=== PATIENT | female | born 1945 | race Caucasian/White ===

== ENCOUNTER → 2017-11-16 | Outpatient (CLI) | payer MEDICARE ==
--- NOTE | 2017-11-17 14:44 | Diagnostic Imaging Report ---
Examination: MRI SPINE LUMBAR WITHOUT CONTRAST History: Nonradiating low back pain for past 3 weeks. Comparison studies: None Technique: Sagittal, coronal and axial T2 , sagittal T1 and STIR; axial spin density oblique. Findings: Number of lumbar vertebral bodies: Five. Alignment: Normal lordosis. No scoliosis. Soft tissues: No T2 hyperintense inflammatory changes. Posterior paraspinal soft tissues and muscles: Mild symmetric fatty atrophy from L1 through S1. Lower thoracic cord: Normal in signal and morphology. The tip of the conus is at L1. Cauda equina: No masses. No arachnoiditis. Vertebrae: No fractures, infection or neoplasm. Degenerative changes: L1-L2: Mild bilateral facet arthropathy. No degenerative disc or foraminal or canal stenosis. L2-L3: Diffuse disc bulge and mild bilateral facet arthropathy result in mild bilateral neural foraminal narrowing. No canal stenosis. L3-L4: Mild bulge and mild bilateral facet arthropathy result in mild bilateral neural foraminal narrowing. No canal stenosis. L4-L5: Grade I anterolisthesis with a right pars defect. Uncovering of a diffuse disc bulge and mild bilateral facet arthropathy. No foraminal or canal stenosis. L5-S1: Diffuse disc bulge and moderate bilateral facet arthropathy result in moderate bilateral neural foraminal narrowing. No canal stenosis. IMPRESSION: Degenerative changes from L1-L2 through L5-S1 with moderate bilateral neural foraminal narrowing at L5-S1. Unilateral/ right isthmic spondylolisthesis at L4-L5. No canal stenosis. Signed by: Dr. Teodora Loomis M.D. on 11/17/2017 2:40 PM
== END ==
LOC: MRI 13:34
PROVIDERS: ATTEND Family Medicine
DX: M54.16 Radiculopathy, lumbar region (principal)
CPT/HCPCS: 72148

== ENCOUNTER → 2019-04-16 | Outpatient (CLI) | payer MEDICARE ==
--- NOTE | 2019-04-16 18:46 | Diagnostic Imaging Report ---
EXAMINATION: CT of the abdomen and pelvis without contrast. TECHNIQUE: Spiral CT images of the abdomen and pelvis were performed from the lung bases to the lesser trochanters. No intravenous contrast was given per renal stone protocol. Coronal and sagittal reformatted images were obtained. COMPARISON: None. CLINICAL HISTORY:Left flank pain for 3 days. DISCUSSION: ABSENCE OF INTRAVENOUS CONTRAST DECREASES SENSITIVITY FOR DETECTION OF FOCAL LESIONS AND VASCULAR PATHOLOGY. ABDOMEN/PELVIS: LOWER THORAX: Linear subsegmental atelectasis versus scarring in the right middle lobe. Atherosclerotic calcification of the ordinary arteries and thoracic aorta. HEPATOBILIARY: Nodular hepatic contour. No focal hepatic lesions. No intra or extrahepatic biliary ductal dilation. GALLBLADDER: No radio-opaque stones or sludge. No wall thickening. SPLEEN: Mild splenomegaly, measuring 13.6 cm in AP diameter PANCREAS: No focal masses or ductal dilatation. ADRENALS: 1.0 cm hypodense nodule in the left adrenal gland (series 3, image 39), which measures less than 10 Hounsfield units. Right adrenal gland unremarkable. KIDNEYS/URETERS: Right: No renal or ureteral calculi, hydronephrosis or obstruction. Right renal cortical scarring. No other contour abnormalities or significant perinephric stranding. Left: 3 nonobstructing calculi ranging in size from 1-3 mm in the mid to inferior left kidney (series 3, image 61). 4 mm nonobstructing calculus in the left inferior pole (series 3, image 68). No ureteral calculi, hydronephrosis or obstruction. Left renal cortical scarring. No other contour abnormalities. No significant perinephric stranding. PELVIC ORGANS/BLADDER: Bladder is unremarkable, without stones or focal lesions. Uterus is absent. No adnexal masses. PERITONEUM/RETROPERITONEUM: No free air or fluid. LYMPH NODES: No intra-abdominal,retroperitoneal, pelvic or inguinal lymphadenopathy. VESSELS: Atherosclerotic calcification of the abdominal aorta. GI TRACT: No bowel dilation or evidence of obstruction. No pericolonic inflammatory changes. Scattered diverticula in the sigmoid colon, without diverticulitis. BONES AND SOFT TISSUES: No aggressive lytic lesions. Degenerative disc changes in the lumbosacral spine, predominantly at L5-S1. Soft tissues are grossly unremarkable. IMPRESSION: 1. Left nonobstructing calculi ranging in size from 1-4 mm, as described. No ureteral or bladder calculi, hydronephrosis or obstruction. 2. Cirrhotic liver. No focal lesions in this noncontrast exam. Mild splenomegaly may reflect portal hypertension. 3. 1.0 cm left benign, lipid rich adrenal adenoma. No further diagnostic or follow-up imaging is indicated. Signed by: Dr. Matthew Harvey M.D. on 04/16/2019 6:43 PM
== END ==
LOC: CT 15:49
PROVIDERS: ATTEND Family Medicine
DX: R10.9 Unspecified abdominal pain (principal); N20.0 Calculus of kidney
CPT/HCPCS: 74176

== ENCOUNTER → 2019-04-25 | Outpatient (CLI) | payer MEDICARE ==
--- NOTE | 2019-04-25 18:11 | Diagnostic Imaging Report ---
History: Back pain x1 month Comparison studies: None Technique: Axial were obtained without IV contrast through the thoracic region. Coronal and sagittal images reconstructed from the axial data. Dose modulation, iterative reconstruction, and/or weight based adjustment of the mA/kV was utilized to reduce the radiation dose to as low as reasonably achievable. Intravenous contrast: None Findings: Alignment: Slightly increased kyphosis. No scoliosis. Soft tissues: Atherosclerotic calcifications in the aortic arch and thoracic aorta. Otherwise no abnormalities. Paraspinal muscles: Mild fatty infiltrated throughout the thoracic region. Spinal cord: Can not be evaluated. Vertebrae: Bones are mildly demineralized. No fractures, infection or neoplasm. Degenerative changes: * Mildly degenerated discs throughout the thoracic region. * Moderate spinal canal stenosis at T8-T9, mild at T10-T11 due to calcified ligamenta flava. * Patent foramina. IMPRESSION: 1. No acute abnormalities. 2. Bones mildly demineralized. No fractures. 3. Degenerative changes as described Signed by: Dr. Drew Becerra M.D. on 04/25/2019 6:08 PM
== END ==
LOC: CT 16:52
PROVIDERS: ATTEND Family Medicine
DX: M48.04 Spinal stenosis, thoracic region (principal); M51.34 Other intervertebral disc degeneration, thoracic region
CPT/HCPCS: 72128

== ENCOUNTER → 2020-03-21 | Outpatient (CLI) | payer MEDICARE ==
--- NOTE | 2020-03-21 14:44 | Diagnostic Imaging Report ---
Exam: Head CT without contrast History: Concussion with loss of consciousness, fall, headache, blurry vision Comparison studies: Prior head CT of 02/08/2014 is unavailable on the PACS for comparison. Technique: Axial images were obtained from the skull base to the vertex. Coronal and sagittal images reconstructed from the axial data. Dose modulation, iterative reconstruction, and/or weight based adjustment of the mA/kV was utilized to reduce the radiation dose to as low as reasonably achievable. Radiation dose: Total DLP: 921.4 mGy*cm. Estimated effective dose: DLP x 0.015 Intravenous contrast: None Findings: Scalp: No abnormalities. Bones: No fractures, blastic or lytic lesions. Brain sulci: Moderately prominent. Ventricles: Mild compensatory dilatation. No hydrocephalus. Extra-axial spaces: No masses, no fluid collection. Incidental small dural ossification along the left frontal convexity without mass effect. Parenchyma: A few scattered hypodensities in the supratentorial white matter are nonspecific but most compatible with chronic small vessel ischemic changes. No mass, acute hemorrhage or acute or chronic cortical insults. Sellar/suprasellar region: No abnormalities. Craniocervical junction: Patent foramen magnum. No Chiari one malformation. Incidental findings: Bilateral intraocular lens replacements. Atherosclerotic calcifications in the carotid siphons an in the right intradural vertebral artery. IMPRESSION: No acute abnormalities. Chronic findings: 1. Moderate generalized parenchymal volume loss. 2. Mild microvascular ischemic changes. Signed by: Dr. Abdoulaye Silva M.D. on 03/21/2020 2:41 PM
== END ==
LOC: CT 13:34
PROVIDERS: ATTEND Family Medicine
DX: I65.21 Occlusion and stenosis of right carotid artery (principal); R00.2 Palpitations; W19.XXXA Unspecified fall, initial encounter
CPT/HCPCS: 70450; 93306; 93880

== ENCOUNTER 2023-07-06 06:17 | Inpatient (IN) | payer MEDICARE ==
[2023-07-06] VITALS (22 sets, daily range): BP systolic 132–158; BP diastolic 62–140; PULSE 69–93; RESP 11–21; TEMP 97.8–98.1; O2SAT 95–99
[~2023-07-06] VITALS: Ht 157.5 cm; Wt 90.7 kg
[2023-07-06 06:52] LABS: BASOPHILS # (AUTO) 0.1 (0.0-0.1); BASOPHILS % 0.9 % (0.0-1.0); EOSINOPHILS # (AUTO) 0.4 (0.0-0.4); EOSINOPHILS % 3.7 % (0.0-6.0); HEMOGLOBIN 14.2 g/dL (12.0-16.0); LYMPHOCYTES # (AUTO) 1.1 (1.0-3.2); MEAN CORPUSCULAR HEMOGLOBIN 29.6 pg (28-32); MEAN CORPUSCULAR HGB CONC 34.6 g/dL (31-35); MEAN CORPUSCULAR VOLUME 85.6 fL (81-99); MONOCYTES # (AUTO) 0.9 (0.2-0.8); MONOCYTES % 9.2 % (4.4-11.3); NEUTROPHILS # (AUTO) 7.5 (2.1-6.9); NEUTROPHILS % 74.6 % (38.7-80.0); PLATELET COUNT 143 x10e3/uL (140-360); RED BLOOD COUNT 4.79 x10e6/uL (3.6-5.1); RED CELL DISTRIBUTION WIDTH 15.3 % (11.7-14.4); WHITE BLOOD COUNT 10.05 x10e3/uL (4.8-10.8)
[2023-07-06 07:09] LABS: ALBUMIN 3.5 g/dL (3.5-5.0); ALBUMIN/GLOBULIN RATIO 1.1 (0.8-2.0); BILIRUBIN,TOTAL 1.2 mg/dL (0.2-1.2); CALCIUM 8.8 mg/dL (8.4-10.2); CREATININE, SERUM 0.98 mg/dL (0.57-1.11); TOTAL PROTEIN 6.7 g/dL (6.5-8.1)
[2023-07-06 07:24] LABS: B-TYPE NATRIURETIC PEPTIDE2 124.4 pg/mL (0-100)
[2023-07-06] MEDS ORDERED: LACTULOSE SYRUP 20 GM/30 ML UDC PO ONE (09:15)
[2023-07-06] MEDS ORDERED: SODIUM CHLORIDE FLUSH 10 ML SYR INJ PRN (10:00)
[2023-07-06] MEDS ORDERED: ONDANSETRON HCL INJ 2MG/ML 2ML 2 MG/ML VIAL IV PRN (10:00)
[2023-07-06 10:18] LABS: AMPHETAMINES SCREEN,URINE NEGATIVE (NEGATIVE); BENZODIAZEPINES SCREEN,URINE NEGATIVE (NEGATIVE); CANNABINOIDS SCREEN,URINE NEGATIVE (NEGATIVE); METHADONE SCREEN, URINE NEGATIVE (NEGATIVE); OPIATES SCREEN,URINE POSITIVE (NEGATIVE); PHENCYCLIDINE SCREEN,URINE NEGATIVE (NEGATIVE)
[2023-07-06 10:26] LABS: BILIRUBIN,URINE NEGATIVE (NEGATIVE); CLARITY,URINE CLEAR (CLEAR); COLOR,URINE YELLOW (YELLOW); GLUCOSE, URINE NEGATIVE (NEGATIVE); KETONES,URINE TRACE (NEGATIVE); LEUKOCYTE ESTERASE ,URINE NEGATIVE (NEGATIVE); NITRITE,URINE NEGATIVE (NEGATIVE); PH,URINE 5.5 (5 - 7); PROTEIN,URINE DIPSTICK TRACE (NEGATIVE); URINE UROBILINOGEN 0.2 mg/dL (0.2 - 1)
[2023-07-06 10:27] LABS: BACTERIA,URINE FEW /HPF; EPITHELIAL CELLS,URINE RARE /LPF; RBC,URINE 0-5 /HPF (0-5)
[2023-07-06] MEDS ORDERED: TRADJENTA5 MG (19:34)
[2023-07-06] MEDS ORDERED: ATORVASTATIN CA40 MG (19:34)
[2023-07-06] MEDS ORDERED: ARIPIPRAZOLE2 MG (19:34)
[2023-07-06] MEDS ORDERED: LEVOTHYROXINE25 MCG (19:34)
[2023-07-06] MEDS ORDERED: METOPROLOL TART50 MG (19:34)
[2023-07-06] MEDS ORDERED: PROMETHAZINE HC25 M1 (19:34)
[2023-07-06] MEDS ORDERED: RALOXIFENE HCL60 MG (19:34)
[2023-07-06] MEDS ORDERED: FUROSEMIDE40 MG (19:34)
[2023-07-06] MEDS ORDERED: PREGABALIN75 MG (19:34)
[2023-07-06] MEDS ORDERED: MYRBETRIQ25 MG (19:34)
[2023-07-06] MEDS ORDERED: SPIRONOLACTONE100 MG (19:34)
[2023-07-06] MEDS ORDERED: ESOMEPRAZOLE MA40 MG (19:34)
[2023-07-06] MEDS: TRAMADOL HCL 50 MG TAB PO PRN (21:43)
[2023-07-06] MEDS: METOPROLOL TARTRATE 50 MG TAB PO SCH (21:43)
[2023-07-07] VITALS (14 sets, daily range): BP systolic 112–158; BP diastolic 47–94; PULSE 76–84; RESP 11–21; TEMP 97.8–98.7; O2SAT 90–100
[2023-07-07] MEDS: TRAMADOL HCL 50 MG TAB PO PRN (04:43)
[2023-07-07] MEDS: LEVOTHYROXINE SODIUM 25 MCG TABLET PO SCH (06:03)
[2023-07-07 06:37] LABS: BASOPHILS # (AUTO) 0.1 (0.0-0.1); BASOPHILS % 1.2 % (0.0-1.0); EOSINOPHILS # (AUTO) 0.4 (0.0-0.4); EOSINOPHILS % 4.3 % (0.0-6.0); LYMPHOCYTES # (AUTO) 0.8 (1.0-3.2); LYMPHOCYTES % 8.7 % (18.0-39.1); MEAN CORPUSCULAR HEMOGLOBIN 29.5 pg (28-32); MEAN CORPUSCULAR HGB CONC 33.3 g/dL (31-35); MEAN CORPUSCULAR VOLUME 88.6 fL (81-99); MONOCYTES # (AUTO) 0.9 (0.2-0.8); MONOCYTES % 9.5 % (4.4-11.3); NEUTROPHILS % 75.9 % (38.7-80.0); PLATELET COUNT 114 x10e3/uL (140-360); RED CELL DISTRIBUTION WIDTH 15.3 % (11.7-14.4)
[2023-07-07 07:09] LABS: ALBUMIN 2.9 g/dL (3.5-5.0); ANION GAP 12.3 mmol/L (8-16); BILIRUBIN,TOTAL 1.2 mg/dL (0.2-1.2); CALCIUM 8.7 mg/dL (8.4-10.2); CREATININE, SERUM 0.83 mg/dL (0.57-1.11); TOTAL PROTEIN 5.7 g/dL (6.5-8.1)
[2023-07-07 07:10] LABS: POTASSIUM 5.3 mmol/L (3.5-5.1)
[2023-07-07] MEDS: FUROSEMIDE 40 MG TAB PO SCH (08:10)
[2023-07-07] MEDS: METOPROLOL TARTRATE 50 MG TAB PO SCH ×2 (08:11→16:47)
[2023-07-07] MEDS ORDERED: TRAMADOL HCL 50 MG TAB PO ONE (08:30)
[2023-07-07] MEDS: LIDOCAINE 4% PATCH TP SCH (16:47)
[2023-07-07] MEDS: ATORVASTATIN 40 MG TAB PO SCH (21:17)
[2023-07-08] VITALS (14 sets, daily range): BP systolic 134–150; BP diastolic 56–70; PULSE 76–89; RESP 18–20; TEMP 97.9–98.7; O2SAT 90–96
[2023-07-08] MEDS: TRAMADOL HCL 50 MG TAB PO PRN ×2 (00:03→06:07)
[2023-07-08] MEDS: LEVOTHYROXINE SODIUM 25 MCG TABLET PO SCH (06:07)
[2023-07-08 06:24] LABS: BASOPHILS # (AUTO) 0.1 (0.0-0.1); BASOPHILS % 0.7 % (0.0-1.0); EOSINOPHILS # (AUTO) 0.1 (0.0-0.4); HEMATOCRIT 39.6 % (34.2-44.1); HEMOGLOBIN 13.2 g/dL (12.0-16.0); LYMPHOCYTES # (AUTO) 0.8 (1.0-3.2); LYMPHOCYTES % 7.4 % (18.0-39.1); MEAN CORPUSCULAR HEMOGLOBIN 28.9 pg (28-32); MEAN CORPUSCULAR HGB CONC 33.3 g/dL (31-35); MEAN CORPUSCULAR VOLUME 86.8 fL (81-99); MONOCYTES # (AUTO) 0.8 (0.2-0.8); MONOCYTES % 7.4 % (4.4-11.3); NEUTROPHILS # (AUTO) 9.4 (2.1-6.9); NEUTROPHILS % 83.1 % (38.7-80.0); PLATELET COUNT 118 x10e3/uL (140-360); RED BLOOD COUNT 4.56 x10e6/uL (3.6-5.1)
[2023-07-08 06:56] LABS: ANION GAP 12.4 mmol/L (8-16); CALCIUM 9.2 mg/dL (8.4-10.2); CREATININE, SERUM 0.73 mg/dL (0.57-1.11); POTASSIUM 4.4 mmol/L (3.5-5.1)
[2023-07-08] MEDS: LIDOCAINE 4% PATCH TP SCH (08:42)
[2023-07-08] MEDS: FUROSEMIDE 40 MG TAB PO SCH (08:44)
[2023-07-08] MEDS: METOPROLOL TARTRATE 50 MG TAB PO SCH ×2 (08:44→20:40)
[2023-07-08] MEDS: ATORVASTATIN 40 MG TAB PO SCH (20:40)
[2023-07-09] VITALS (12 sets, daily range): BP systolic 131–153; BP diastolic 57–77; PULSE 65–95; RESP 16–21; TEMP 97.6–98.4; O2SAT 93–100
[2023-07-09] MEDS: LEVOTHYROXINE SODIUM 25 MCG TABLET PO SCH (05:39)
[2023-07-09 07:43] LABS: BASOPHILS # (AUTO) 0.1 (0.0-0.1); BASOPHILS % 0.8 % (0.0-1.0); EOSINOPHILS # (AUTO) 0.3 (0.0-0.4); EOSINOPHILS % 3.2 % (0.0-6.0); HEMATOCRIT 39.8 % (34.2-44.1); HEMOGLOBIN 13.4 g/dL (12.0-16.0); LYMPHOCYTES # (AUTO) 1.2 (1.0-3.2); LYMPHOCYTES % 11.9 % (18.0-39.1); MEAN CORPUSCULAR HEMOGLOBIN 29.1 pg (28-32); MEAN CORPUSCULAR HGB CONC 33.7 g/dL (31-35); MEAN CORPUSCULAR VOLUME 86.5 fL (81-99); MONOCYTES % 9.8 % (4.4-11.3); NEUTROPHILS # (AUTO) 7.2 (2.1-6.9); NEUTROPHILS % 73.9 % (38.7-80.0); RED CELL DISTRIBUTION WIDTH 15.1 % (11.7-14.4); WHITE BLOOD COUNT 9.74 x10e3/uL (4.8-10.8)
[2023-07-09 07:52] LABS: PLATELET COUNT 137 x10e3/uL (140-360)
[2023-07-09 07:55] LABS: ANION GAP 12.7 mmol/L (8-16); CALCIUM 9.3 mg/dL (8.4-10.2); CREATININE, SERUM 0.7 mg/dL (0.57-1.11); POTASSIUM 3.7 mmol/L (3.5-5.1)
[2023-07-09] MEDS: LIDOCAINE 4% PATCH TP SCH (08:33)
[2023-07-09] MEDS: METOPROLOL TARTRATE 50 MG TAB PO SCH ×2 (08:35→21:12)
[2023-07-09] MEDS: TRAMADOL HCL 50 MG TAB PO PRN ×2 (08:35→21:14)
[2023-07-09] MEDS: FUROSEMIDE 40 MG TAB PO SCH (08:35)
[2023-07-09] MEDS ORDERED: LACTULOSE10 GM/151 PO (14:27)
[2023-07-09] MEDS: ATORVASTATIN 40 MG TAB PO SCH (21:13)
[2023-07-10] VITALS (15 sets, daily range): BP systolic 134–155; BP diastolic 60–69; PULSE 63–78; RESP 16–20; TEMP 97.9–98.8; O2SAT 93–98
[2023-07-10] MEDS: TRAMADOL HCL 50 MG TAB PO PRN ×2 (04:16→21:23)
[2023-07-10] MEDS: LEVOTHYROXINE SODIUM 25 MCG TABLET PO SCH (05:55)
[2023-07-10] MEDS: LIDOCAINE 4% PATCH TP SCH (08:22)
[2023-07-10] MEDS: METOPROLOL TARTRATE 50 MG TAB PO SCH ×2 (08:23→21:23)
[2023-07-10] MEDS: FUROSEMIDE 40 MG TAB PO SCH (08:23)
[2023-07-10] MEDS: LACTULOSE SYRUP 20 GM/30 ML UDC PO SCH (08:23)
[2023-07-10] MEDS: ATORVASTATIN 40 MG TAB PO SCH (21:22)
[2023-07-11] VITALS (9 sets, daily range): BP systolic 137–152; BP diastolic 53–74; PULSE 64–75; RESP 16–18; TEMP 97.5–98.3; O2SAT 93–99
[2023-07-11] MEDS: LEVOTHYROXINE SODIUM 25 MCG TABLET PO SCH (04:40)
[2023-07-11] MEDS: TRAMADOL HCL 50 MG TAB PO PRN ×3 (04:41→17:46)
[2023-07-11] MEDS: METOPROLOL TARTRATE 50 MG TAB PO SCH ×2 (09:08→21:32)
[2023-07-11] MEDS: FUROSEMIDE 40 MG TAB PO SCH (09:09)
[2023-07-11] MEDS: LACTULOSE SYRUP 20 GM/30 ML UDC PO SCH (09:09)
[2023-07-11] MEDS: LIDOCAINE 4% PATCH TP SCH (09:09)
[2023-07-11] MEDS ORDERED: ONDANSETRON HCL 4 MG ORAL DISINTEGRATING TAB PO PRN (14:30)
[2023-07-11] MEDS: ATORVASTATIN 40 MG TAB PO SCH (21:32)
[2023-07-12] VITALS (8 sets, daily range): BP systolic 133–155; BP diastolic 60–73; PULSE 62–68; RESP 16–20; TEMP 97.7–98.5; O2SAT 94–99
[2023-07-12] MEDS: TRAMADOL HCL 50 MG TAB PO PRN ×2 (00:07→08:50)
[2023-07-12] MEDS: LEVOTHYROXINE SODIUM 25 MCG TABLET PO SCH (05:34)
[2023-07-12 05:53] LABS: BASOPHILS # (AUTO) 0.1 (0.0-0.1); BASOPHILS % 1.1 % (0.0-1.0); EOSINOPHILS # (AUTO) 0.5 (0.0-0.4); EOSINOPHILS % 6.3 % (0.0-6.0); HEMATOCRIT 41.4 % (34.2-44.1); HEMOGLOBIN 14.3 g/dL (12.0-16.0); LYMPHOCYTES # (AUTO) 1.2 (1.0-3.2); LYMPHOCYTES % 14.4 % (18.0-39.1); MEAN CORPUSCULAR HEMOGLOBIN 29.2 pg (28-32); MEAN CORPUSCULAR HGB CONC 34.5 g/dL (31-35); MEAN CORPUSCULAR VOLUME 84.7 fL (81-99); MONOCYTES # (AUTO) 1.1 (0.2-0.8); MONOCYTES % 12.5 % (4.4-11.3); NEUTROPHILS # (AUTO) 5.4 (2.1-6.9); PLATELET COUNT 148 x10e3/uL (140-360); RED BLOOD COUNT 4.89 x10e6/uL (3.6-5.1); RED CELL DISTRIBUTION WIDTH 15.2 % (11.7-14.4)
[2023-07-12 06:24] LABS: ANION GAP 12.6 mmol/L (8-16); CALCIUM 8.1 mg/dL (8.4-10.2); CREATININE, SERUM 0.65 mg/dL (0.57-1.11); POTASSIUM 3.6 mmol/L (3.5-5.1)
[2023-07-12] MEDS: FUROSEMIDE 40 MG TAB PO SCH (08:50)
[2023-07-12] MEDS: LACTULOSE SYRUP 20 GM/30 ML UDC PO SCH (08:50)
[2023-07-12] MEDS: LIDOCAINE 4% PATCH TP SCH (08:51)
[2023-07-12] MEDS: METOPROLOL TARTRATE 50 MG TAB PO SCH ×2 (08:51→20:47)
[2023-07-12] MEDS: METHOCARBAMOL 750 MG TAB PO PRN (16:22)
[2023-07-12] MEDS: ATORVASTATIN 40 MG TAB PO SCH (20:44)
[2023-07-13] VITALS: BP 154/68; PULSE 65; RESP 18; TEMP 98; O2SAT 96
[2023-07-13] MEDS: METHOCARBAMOL 750 MG TAB PO PRN ×2 (03:59→14:40)
[2023-07-13 04:00] VITALS: BP 145/68; PULSE 63; RESP 18; TEMP 98.4; O2SAT 97
[2023-07-13] MEDS: LEVOTHYROXINE SODIUM 25 MCG TABLET PO SCH (05:37)
[2023-07-13 08:00] VITALS: BP 145/68; PULSE 63; RESP 18; TEMP 98.4; O2SAT 97
[2023-07-13] MEDS: LIDOCAINE 4% PATCH TP SCH (08:20)
[2023-07-13 09:00] VITALS: BP 168/69; PULSE 63; RESP 15; TEMP 98.3; O2SAT 97
[2023-07-13] MEDS: LACTULOSE SYRUP 20 GM/30 ML UDC PO SCH (10:06)
[2023-07-13] MEDS: METOPROLOL TARTRATE 50 MG TAB PO SCH (10:11)
[2023-07-13] MEDS: FUROSEMIDE 40 MG TAB PO SCH (10:11)
[2023-07-13] MEDS: HYDRALAZINE HCL 20 MG/ML VIAL IV PRN ×2 (10:13→17:02)
[2023-07-13 13:44] VITALS: BP 148/59; PULSE 66; RESP 15; TEMP 97.6; O2SAT 93
[2023-07-13 17:02] VITALS: BP 181/79
== END 2023-07-13 19:18 | DRG 442 ==
LOC: ER 06:27 → ERHOLD 09:48 → ICU 13:27 → MED/SURG3 07-07 18:02
PROVIDERS: ADMIT Family Medicine; ATTEND Family Medicine
DX: K76.82 Hepatic encephalopathy (principal); S22.32XA Fracture of one rib, left side, initial encounter for closed fracture; R55 Syncope and collapse; I10 Essential (primary) hypertension; E78.5 Hyperlipidemia, unspecified; E66.01 Morbid (severe) obesity due to excess calories; W18.30XA Fall on same level, unspecified, initial encounter; K74.60 Unspecified cirrhosis of liver; F32.A Depression, unspecified; R09.02 Hypoxemia; Y92.039 Unspecified place in apartment as the place of occurrence of the external cause; R53.81 Other malaise; M19.90 Unspecified osteoarthritis, unspecified site; R29.6 Repeated falls; I25.10 Atherosclerotic heart disease of native coronary artery without angina pectoris; G43.909 Migraine, unspecified, not intractable, without status migrainosus; F41.9 Anxiety disorder, unspecified; G89.29 Other chronic pain; Z96.652 Presence of left artificial knee joint; M54.9 Dorsalgia, unspecified; Z79.890 Hormone replacement therapy; Z85.3 Personal history of malignant neoplasm of breast; Z90.11 Acquired absence of right breast and nipple; Z86.73 Personal history of transient ischemic attack (TIA), and cerebral infarction without residual deficits; Z86.19 Personal history of other infectious and parasitic diseases; Z87.440 Personal history of urinary (tract) infections; Z79.899 Other long term (current) drug therapy; Z20.822 Contact with and (suspected) exposure to COVID-19; Z68.36 Body mass index [BMI] 36.0-36.9, adult
CPT/HCPCS: 36415; 70450; 71250; 80048; 80053; 80307; 80320; 81001; 82140; 82948; 83880; 84484; 85025; 93005; 94799; 99252; 99285; J2405; U0002

== ENCOUNTER 2024-05-10 12:33 | Inpatient (IN) | payer MEDICARE ==
[~2024-05-10] VITALS: Ht 157.5 cm; Wt 83.5 kg
[~2024-05-10 12:33] MED LIST: ARIPIPRAZOLE2 MG; ATORVASTATIN CA40 MG; CIPRO250 MG PO; ESOMEPRAZOLE MA40 MG; FUROSEMIDE40 MG; LACTULOSE10 GM/151 PO; LEVOTHYROXINE25 MCG; METOPROLOL TART50 MG; MYRBETRIQ25 MG; PREGABALIN75 MG; PROMETHAZINE HC25 M1; RALOXIFENE HCL60 MG; SPIRONOLACTONE100 MG; TRADJENTA5 MG
[2024-05-10 13:06] VITALS: TEMP 98.4
[2024-05-10 14:13] LABS: BASOPHILS # (AUTO) 0.1 (0.0-0.1); BASOPHILS % 0.7 % (0.0-1.0); EOSINOPHILS # (AUTO) 0.2 (0.0-0.4); EOSINOPHILS % 1.9 % (0.0-6.0); HEMATOCRIT 29.9 % (34.2-44.1); HEMOGLOBIN 8.9 g/dL (12.0-16.0); LYMPHOCYTES # (AUTO) 0.8 (1.0-3.2); LYMPHOCYTES % 9.7 % (18.0-39.1); MEAN CORPUSCULAR HEMOGLOBIN 21.4 pg (28-32); MEAN CORPUSCULAR HGB CONC 29.8 g/dL (31-35); MONOCYTES # (AUTO) 0.8 (0.2-0.8); MONOCYTES % 9.4 % (4.4-11.3); NEUTROPHILS # (AUTO) 6.3 (2.1-6.9); NEUTROPHILS % 78.1 % (38.7-80.0); PLATELET COUNT 211 x10e3/uL (140-360); RED BLOOD COUNT 4.15 x10e6/uL (3.6-5.1); RED CELL DISTRIBUTION WIDTH 17.7 % (11.7-14.4); WHITE BLOOD COUNT 8.05 x10e3/uL (4.8-10.8)
[2024-05-10 14:28] LABS: ALBUMIN 2.8 g/dL (3.5-5.0); ALBUMIN/GLOBULIN RATIO 0.8 (0.8-2.0); ANION GAP 13.2 mmol/L (8-16); CALCIUM 8.8 mg/dL (8.4-10.2); CREATININE, SERUM 0.79 mg/dL (0.57-1.11); TOTAL PROTEIN 6.5 g/dL (6.5-8.1)
[2024-05-10 14:31] LABS: POTASSIUM 3.2 mmol/L (3.5-5.1)
[2024-05-10 14:34] LABS: TROPONIN I 0.022 ng/mL (0-0.300)
[2024-05-10] MEDS ORDERED: FUROSEMIDE INJ 10 MG/ML 4 ML VIAL ONE (15:54)
[2024-05-10] MEDS ORDERED: CEFTRIAXONE 1 GM VIAL ONE (15:54)
[2024-05-10] MEDS: FUROSEMIDE INJ 10 MG/ML 4 ML VIAL IV ONE (16:10)
[2024-05-10] MEDS ORDERED: ONDANSETRON HCL INJ 2MG/ML 2ML 2 MG/ML VIAL IV PRN (16:15)
[2024-05-10] MEDS: ACETAMINOPHEN 325 MG TAB PO PRN (17:00)
[2024-05-10] MEDS: POTASSIUM CHLORIDE 20 MEQ TAB CR PO STA (17:00)
[2024-05-10 18:00] VITALS: PULSE 86; RESP 20
[2024-05-10 19:57] VITALS: BP 126/52; PULSE 83; RESP 18; TEMP 98; O2SAT 97
[2024-05-10 20:00] VITALS: BP 126/52; PULSE 83; RESP 18; TEMP 98; O2SAT 97
[2024-05-10] MEDS: ARIPIPRAZOLE 2 MG TABLET PO SCH (22:34)
[2024-05-10] MEDS: ARIPIPRAZOLE 2 MG TABLET ONE (22:35)
[2024-05-10 22:57] VITALS: PULSE 83; RESP 18; O2SAT 97
[2024-05-10] MEDS: ALBUTEROL/IPRATROPIUM 3 ML NEB NEB PRN (22:57)
[2024-05-10 23:59] VITALS: BP 145/62; PULSE 86; RESP 18; TEMP 98.1; O2SAT 99
[2024-05-11] VITALS (12 sets, daily range): BP systolic 131–172; BP diastolic 53–66; PULSE 73–100; RESP 16–20; TEMP 97.4–98.9; O2SAT 94–99
[2024-05-11] MEDS: FUROSEMIDE INJ 10 MG/ML 2 ML VIAL IV SCH (05:37)
[2024-05-11 06:53] LABS: BASOPHILS # (AUTO) 0.1 (0.0-0.1); BASOPHILS % 1.3 % (0.0-1.0); EOSINOPHILS # (AUTO) 0.3 (0.0-0.4); EOSINOPHILS % 3.9 % (0.0-6.0); HEMATOCRIT 26.7 % (34.2-44.1); HEMOGLOBIN 8.1 g/dL (12.0-16.0); LYMPHOCYTES # (AUTO) 0.8 (1.0-3.2); LYMPHOCYTES % 11.5 % (18.0-39.1); MEAN CORPUSCULAR HEMOGLOBIN 21.2 pg (28-32); MEAN CORPUSCULAR HGB CONC 30.3 g/dL (31-35); MEAN CORPUSCULAR VOLUME 69.9 fL (81-99); MONOCYTES # (AUTO) 0.7 (0.2-0.8); MONOCYTES % 9.4 % (4.4-11.3); NEUTROPHILS % 73.3 % (38.7-80.0); PLATELET COUNT 219 x10e3/uL (140-360); RED BLOOD COUNT 3.82 x10e6/uL (3.6-5.1); RED CELL DISTRIBUTION WIDTH 17.7 % (11.7-14.4); WHITE BLOOD COUNT 6.88 x10e3/uL (4.8-10.8)
[2024-05-11 07:13] LABS: ALBUMIN 2.3 g/dL (3.5-5.0); ALBUMIN/GLOBULIN RATIO 0.7 (0.8-2.0); ANION GAP 11.8 mmol/L (8-16); BILIRUBIN,TOTAL 0.8 mg/dL (0.2-1.2); CALCIUM 8.4 mg/dL (8.4-10.2); CHOL/HDL RATIO 3.2 (3.0-3.6); CREATININE, SERUM 0.7 mg/dL (0.57-1.11); POTASSIUM 3.8 mmol/L (3.5-5.1); TOTAL PROTEIN 5.6 g/dL (6.5-8.1)
[2024-05-11 07:22] LABS: TROPONIN I 0.006 ng/mL (0-0.300)
[2024-05-11] MEDS: METOPROLOL TARTRATE 50 MG TAB PO SCH ×2 (09:00→09:16)
[2024-05-11] MEDS: LEVOTHYROXINE SODIUM 25 MCG TABLET PO SCH (09:14)
[2024-05-11] MEDS: LACTULOSE SYRUP 20 GM/30 ML UDC PO SCH ×2 (09:14→20:39)
[2024-05-11] MEDS: SPIRONOLACTONE 25 MG TAB PO SCH (09:15)
[2024-05-11] MEDS: METOLAZONE 5 MG TAB PO ONE (12:27)
[2024-05-11] MEDS: FUROSEMIDE INJ 10 MG/ML 4 ML VIAL IV ONE (12:28)
[2024-05-11 13:06] LABS: TROPONIN I 0.011 ng/mL (0-0.300)
[2024-05-11] MEDS: FUROSEMIDE INJ 10 MG/ML 4 ML VIAL IV SCH (17:14)
[2024-05-11] MEDS: ATORVASTATIN 40 MG TAB PO SCH (20:39)
[2024-05-11] MEDS: RIFAXIMIN 550 MG TABLET PO SCH (20:39)
[2024-05-11] MEDS: ENOXAPARIN SOD INJ 40 MG/0.4 ML SYR SC SCH (20:39)
[2024-05-12] VITALS (11 sets, daily range): BP systolic 126–141; BP diastolic 50–58; PULSE 68–79; RESP 18–20; TEMP 97.7–98.2; O2SAT 95–100
[2024-05-12] MEDS: PREGABALIN 75 MG CAP PO SCH (09:33)
[2024-05-12 09:35] LABS: ANION GAP 12.5 mmol/L (8-16); CALCIUM 8.7 mg/dL (8.4-10.2); CREATININE, SERUM 0.74 mg/dL (0.57-1.11); POTASSIUM 3.5 mmol/L (3.5-5.1)
[2024-05-13] VITALS (9 sets, daily range): BP systolic 128–143; BP diastolic 51–64; PULSE 65–76; RESP 18–20; TEMP 97.6–98.4; O2SAT 96–100
[2024-05-13 06:42] LABS: ALBUMIN 2.3 g/dL (3.5-5.0); ALBUMIN/GLOBULIN RATIO 0.7 (0.8-2.0); ANION GAP 12.6 mmol/L (8-16); BILIRUBIN,TOTAL 0.6 mg/dL (0.2-1.2); CALCIUM 8.4 mg/dL (8.4-10.2); CREATININE, SERUM 0.73 mg/dL (0.57-1.11); MAGNESIUM 1.4 MG/DL (1.3-2.1); POTASSIUM 3.6 mmol/L (3.5-5.1); TOTAL PROTEIN 5.7 g/dL (6.5-8.1)
[2024-05-14] VITALS (10 sets, daily range): BP systolic 116–134; BP diastolic 54–68; PULSE 66–76; RESP 18–22; TEMP 97.6–98.2; O2SAT 96–100
[2024-05-14 06:52] LABS: BASOPHILS # (AUTO) 0.1 (0.0-0.1); BASOPHILS % 1.5 % (0.0-1.0); EOSINOPHILS # (AUTO) 0.5 (0.0-0.4); EOSINOPHILS % 8.7 % (0.0-6.0); HEMATOCRIT 29.6 % (34.2-44.1); HEMOGLOBIN 8.7 g/dL (12.0-16.0); LYMPHOCYTES % 16.4 % (18.0-39.1); MEAN CORPUSCULAR HEMOGLOBIN 20.9 pg (28-32); MEAN CORPUSCULAR HGB CONC 29.4 g/dL (31-35); MEAN CORPUSCULAR VOLUME 71.2 fL (81-99); MONOCYTES # (AUTO) 0.5 (0.2-0.8); MONOCYTES % 9.1 % (4.4-11.3); NEUTROPHILS # (AUTO) 3.8 (2.1-6.9); NEUTROPHILS % 63.8 % (38.7-80.0); PLATELET COUNT 203 x10e3/uL (140-360); RED BLOOD COUNT 4.16 x10e6/uL (3.6-5.1); RED CELL DISTRIBUTION WIDTH 17.8 % (11.7-14.4); WHITE BLOOD COUNT 5.96 x10e3/uL (4.8-10.8)
[2024-05-14 07:12] LABS: ANION GAP 11.6 mmol/L (8-16); CALCIUM 8.5 mg/dL (8.4-10.2); CREATININE, SERUM 0.67 mg/dL (0.57-1.11); POTASSIUM 3.6 mmol/L (3.5-5.1)
[2024-05-15] VITALS: BP 126/58; PULSE 63; RESP 19; TEMP 97.6; O2SAT 99
[2024-05-15 03:09] VITALS: PULSE 66; RESP 20; O2SAT 99
[2024-05-15 04:00] VITALS: BP 111/51; PULSE 66; RESP 17; TEMP 97.6; O2SAT 99
[2024-05-15 10:05] VITALS: BP 104/51; PULSE 78; RESP 18; TEMP 98; O2SAT 93
[2024-05-15 12:15] VITALS: PULSE 75; RESP 20; O2SAT 96
[2024-05-15 13:20] VITALS: BP 131/61; PULSE 69; RESP 20; TEMP 97.6; O2SAT 100
== END 2024-05-15 14:05 | disposition home or self-care (01) | DRG 432 ==
LOC: ER 12:50 → ERHOLD 16:16 → MED/SURG3 19:04
PROVIDERS: ADMIT Family Medicine; ATTEND Family Medicine
DX: K74.60 Unspecified cirrhosis of liver (principal); I50.33 Acute on chronic diastolic (congestive) heart failure; I11.0 Hypertensive heart disease with heart failure; E87.79 Other fluid overload; B19.20 Unspecified viral hepatitis C without hepatic coma; K76.82 Hepatic encephalopathy; E11.69 Type 2 diabetes mellitus with other specified complication; Z79.84 Long term (current) use of oral hypoglycemic drugs; E78.5 Hyperlipidemia, unspecified; I25.118 Atherosclerotic heart disease of native coronary artery with other forms of angina pectoris; R54 Age-related physical debility; K21.9 Gastro-esophageal reflux disease without esophagitis; E03.9 Hypothyroidism, unspecified; I89.0 Lymphedema, not elsewhere classified; E66.01 Morbid (severe) obesity due to excess calories; Z68.36 Body mass index [BMI] 36.0-36.9, adult; Z71.3 Dietary counseling and surveillance; G43.709 Chronic migraine without aura, not intractable, without status migrainosus; G43.809 Other migraine, not intractable, without status migrainosus; F41.8 Other specified anxiety disorders; Z86.73 Personal history of transient ischemic attack (TIA), and cerebral infarction without residual deficits; Z85.3 Personal history of malignant neoplasm of breast; Z90.11 Acquired absence of right breast and nipple; Z96.652 Presence of left artificial knee joint; Z79.899 Other long term (current) drug therapy
CPT/HCPCS: 36415; 71045; 80048; 80053; 80061; 82550; 82948; 83735; 83880; 84443; 84484; 85025; 87040; 93005; 93306; 94640; 94799; 99284; J0696; J1650; J1940; J7050

== ENCOUNTER 2024-08-29 09:49 | Inpatient (IN) | payer MEDICARE ==
[~2024-08-29] VITALS: Ht 157.5 cm; Wt 84.4 kg
[2024-08-29] VITALS (9 sets, daily range): BP systolic 150–171; BP diastolic 61–71; PULSE 69–81; RESP 12–19; TEMP 97.8–98.2; O2SAT 95–99
[2024-08-29] MEDS ORDERED: FUROSEMIDE INJ 10 MG/ML 2 ML VIAL IV PRN (10:15)
[2024-08-29 10:46] LABS: CORONAVIRUS COVID-19 AG NEGATIVE (NEGATIVE); INFLUENZA A AG NEGATIVE (NEGATIVE); INFLUENZA B AG NEGATIVE (NEGATIVE)
[2024-08-29 10:47] LABS: ALBUMIN 2.9 g/dL (3.5-5.0); ALBUMIN/GLOBULIN RATIO 0.8 (0.8-2.0); ANION GAP 13.1 mmol/L (8-16); BILIRUBIN,TOTAL 1.1 mg/dL (0.2-1.2); CALCIUM 8.5 mg/dL (8.4-10.2); CREATININE, SERUM 0.75 mg/dL (0.57-1.11); MAGNESIUM 1.7 MG/DL (1.3-2.1); POTASSIUM 4.1 mmol/L (3.5-5.1); TOTAL PROTEIN 6.4 g/dL (6.5-8.1)
[2024-08-29 11:03] LABS: INR 1.29; PROTHROMBIN TIME 16.8 seconds (11.9-14.5)
[2024-08-29 11:04] LABS: PARTIAL THROMBOPLASTIN TIME 37.7 seconds (23.8-35.5)
[2024-08-29 11:17] LABS: TROPONIN I 0.003 ng/mL (0-0.300)
[2024-08-29 11:18] LABS: BASOPHILS # (AUTO) 0.1 (0.0-0.1); BASOPHILS % 1.3 % (0.0-1.0); EOSINOPHILS # (AUTO) 0.4 (0.0-0.4); EOSINOPHILS % 5.3 % (0.0-6.0); HEMATOCRIT 26.2 % (34.2-44.1); HEMOGLOBIN 7.5 g/dL (12.0-16.0); LYMPHOCYTES # (AUTO) 0.8 (1.0-3.2); MEAN CORPUSCULAR HEMOGLOBIN 16.8 pg (28-32); MEAN CORPUSCULAR HGB CONC 28.6 g/dL (31-35); MEAN CORPUSCULAR VOLUME 58.7 fL (81-99); MONOCYTES # (AUTO) 0.6 (0.2-0.8); NEUTROPHILS # (AUTO) 5.2 (2.1-6.9); NEUTROPHILS % 74.1 % (38.7-80.0); RED BLOOD COUNT 4.46 x10e6/uL (3.6-5.1); RED CELL DISTRIBUTION WIDTH 24.8 % (11.7-14.4); WHITE BLOOD COUNT 7.02 x10e3/uL (4.8-10.8)
[2024-08-29 11:19] LABS: PLATELET COUNT 168 x10e3/uL (140-360)
[2024-08-29] MEDS: OCTREOTIDE ACETATE 0.05 MG/ML AMP IV STA (12:20)
[2024-08-29] MEDS: OCTREOTIDE ACETATE 500 MCG in SODIUM CHLORIDE 0.9% 250ML 249 ML IV SCH (12:25)
[2024-08-29 12:36] LABS: BILIRUBIN,URINE NEGATIVE (NEGATIVE); COLOR,URINE YELLOW (YELLOW); GLUCOSE, URINE NEGATIVE (NEGATIVE); KETONES,URINE NEGATIVE (NEGATIVE); LEUKOCYTE ESTERASE ,URINE NEGATIVE (NEGATIVE); NITRITE,URINE NEGATIVE (NEGATIVE); PH,URINE 7 (5 - 7); PROTEIN,URINE DIPSTICK NEGATIVE (NEGATIVE); RBC,URINE 0-5 /HPF (0-5); URINE UROBILINOGEN 0.2 mg/dL (0.2 - 1); WBC,URINE (MAN) 0-5 /HPF (0-5)
[2024-08-29 12:38] LABS: BACTERIA,URINE MODERATE /HPF; CLARITY,URINE CLEAR (CLEAR); EPITHELIAL CELLS,URINE FEW /LPF
[2024-08-29] MEDS: SODIUM CHLORIDE 0.9% 250ML 250 ML IV ONE (17:04)
[2024-08-29] MEDS ORDERED: XIFAXAN550 MG PO (21:16)
[2024-08-29] MEDS ORDERED: ULTRAM 50MG50 MG PO (21:16)
[2024-08-29 23:25] LABS: CREATINE KINASE 24 IU/L (29-168)
[2024-08-29 23:29] LABS: TROPONIN I < 0.001 ng/mL (0-0.300)
[2024-08-30] VITALS (10 sets, daily range): BP systolic 143–166; BP diastolic 55–69; PULSE 62–78; RESP 18–20; TEMP 97.7–98.2; O2SAT 97–100
[2024-08-30 03:35] LABS: FERRITIN 26.38 ng/mL (4.63-204.00)
[2024-08-30 03:48] LABS: FOLATE 11.2 ng/mL (7.0-15.4)
[2024-08-30 05:25] LABS: BASOPHILS # (AUTO) 0.1 (0.0-0.1); BASOPHILS % 1.4 % (0.0-1.0); EOSINOPHILS # (AUTO) 0.4 (0.0-0.4); EOSINOPHILS % 5.8 % (0.0-6.0); HEMATOCRIT 29.5 % (34.2-44.1); HEMOGLOBIN 8.3 g/dL (12.0-16.0); LYMPHOCYTES # (AUTO) 0.8 (1.0-3.2); LYMPHOCYTES % 11.4 % (18.0-39.1); MEAN CORPUSCULAR HEMOGLOBIN 17.8 pg (28-32); MEAN CORPUSCULAR HGB CONC 28.1 g/dL (31-35); MONOCYTES # (AUTO) 0.6 (0.2-0.8); MONOCYTES % 7.8 % (4.4-11.3); NEUTROPHILS # (AUTO) 5.3 (2.1-6.9); NEUTROPHILS % 73.1 % (38.7-80.0); PLATELET COUNT 177 x10e3/uL (140-360); RED BLOOD COUNT 4.67 x10e6/uL (3.6-5.1); RED CELL DISTRIBUTION WIDTH 25.5 % (11.7-14.4); WHITE BLOOD COUNT 7.28 x10e3/uL (4.8-10.8)
[2024-08-30 05:45] LABS: MEAN CORPUSCULAR VOLUME 63.2 fL (81-99)
[2024-08-30 06:01] LABS: ALBUMIN 2.8 g/dL (3.5-5.0); ALBUMIN/GLOBULIN RATIO 0.9 (0.8-2.0); ANION GAP 12.6 mmol/L (8-16); BILIRUBIN,TOTAL 1.2 mg/dL (0.2-1.2); CALCIUM 8.1 mg/dL (8.4-10.2); CREATININE, SERUM 0.74 mg/dL (0.57-1.11); POTASSIUM 4.6 mmol/L (3.5-5.1)
[2024-08-30 06:56] LABS: ANISOCYTOSIS MODERATE; HYPOCHROMASIA MODERATE; MICROCYTOSIS MODERATE; PLATELET ESTIMATE ADEQUATE; PLATELET MORPHOLOGY COMMENT FEW LARGE; POLYCHROMASIA FEW; RBC MORPHOLOGY COMMENT ABNORMAL
[2024-08-30 06:57] LABS: OVALOCYTES FEW; TARGET CELLS FEW
[2024-08-30] MEDS ORDERED: OCTREOTIDE ACETATE 0 ML ONE (08:24)
[2024-08-30 09:14] LABS: TROPONIN I 0.016 ng/mL (0-0.300)
[2024-08-30] MEDS: RIFAXIMIN 550 MG TABLET PO SCH ×2 (09:19→17:00)
[2024-08-30] MEDS ORDERED: LIDOCAINE HCL 2% LOCAL INJ 5 ML SDV VIAL INJ ONE (12:22)
[2024-08-30] MEDS ORDERED: PROPOFOL IV EMULSION 10 MG/ML 20 ML VIAL ONE ×2 (12:22→12:26)
[2024-08-30] MEDS ORDERED: FENTANYL CITRATE/PF 100MCG/2 ML INJ ONE (12:38)
[2024-08-30] MEDS ORDERED: ETOMIDATE 40 MG/ 20ML VIAL IV ONE (13:04)
[2024-08-30] MEDS: LACTULOSE SYRUP 20 GM/30 ML UDC PO SCH (15:00)
[2024-08-30] MEDS: FUROSEMIDE INJ 10 MG/ML 4 ML VIAL ONE (17:40)
[2024-08-30] MEDS: IRON SUCROSE 100 MG in SODIUM CHLORIDE 0.9% 100 ML IV SCH (17:41)
[2024-08-30] MEDS: METOPROLOL TARTRATE 50 MG TAB PO SCH (17:50)
[2024-08-30] MEDS: TRAMADOL HCL 50 MG TAB PO PRN (17:58)
[2024-08-30] MEDS ORDERED: BENZOCAINE/TETRACAINE/BUTAMBEN AERO SPRAY 56 GM CAN ONE (18:14)
[2024-08-30] MEDS ORDERED: DEXTROSE 50% SYRINGE 50 ML IV PRN (20:45)
[2024-08-30] MEDS: INSULIN LISPRO 100 UNIT/1 ML 3ML VIAL SQ SCH (21:24)
[2024-08-31] VITALS (8 sets, daily range): BP systolic 153–172; BP diastolic 60–92; PULSE 63–78; RESP 18–22; TEMP 97.7–98.2; O2SAT 95–99
[2024-08-31 05:13] LABS: BASOPHILS # (AUTO) 0.1 (0.0-0.1); BASOPHILS % 0.7 % (0.0-1.0); EOSINOPHILS # (AUTO) 0.2 (0.0-0.4); EOSINOPHILS % 1.7 % (0.0-6.0); HEMOGLOBIN 8.5 g/dL (12.0-16.0); LYMPHOCYTES # (AUTO) 0.6 (1.0-3.2); LYMPHOCYTES % 6.1 % (18.0-39.1); MEAN CORPUSCULAR HEMOGLOBIN 17.7 pg (28-32); MEAN CORPUSCULAR HGB CONC 28.3 g/dL (31-35); MEAN CORPUSCULAR VOLUME 62.5 fL (81-99); MONOCYTES # (AUTO) 0.5 (0.2-0.8); MONOCYTES % 5.9 % (4.4-11.3); NEUTROPHILS # (AUTO) 7.7 (2.1-6.9); PLATELET COUNT 182 x10e3/uL (140-360); RED CELL DISTRIBUTION WIDTH 25.6 % (11.7-14.4); WHITE BLOOD COUNT 9.05 x10e3/uL (4.8-10.8)
[2024-08-31 05:51] LABS: ANION GAP 13.1 mmol/L (8-16); CREATININE, SERUM 0.76 mg/dL (0.57-1.11); POTASSIUM 4.1 mmol/L (3.5-5.1)
[2024-08-31 07:15] LABS: HEPATITIS B CORE IGM (P) Negative; HEPATITIS B SURFACE AG (P) Negative
[2024-08-31 07:16] LABS: HEPATITIS A ANTIBODY IGM (P) Negative; HEPATITIS C ANTIBODY Non Reactive
[2024-08-31 07:56] LABS: ANISOCYTOSIS MODERATE; EOSINOPHILS % (MANUAL) 1 % (0-7); HYPOCHROMASIA MODERATE; LYMPHOCYTES % (MANUAL) 1 % (19-48); MICROCYTOSIS MODERATE; MONOCYTES % (MANUAL) 8 % (3.4-9.0); NEUTROPHILS % (MANUAL) 90 % (40-74); PLATELET ESTIMATE ADEQUATE; PLATELET MORPHOLOGY COMMENT NORMAL; RBC MORPHOLOGY COMMENT ABNORMAL
[2024-08-31 07:57] LABS: OVALOCYTES FEW; POLYCHROMASIA FEW; TARGET CELLS FEW
[2024-08-31] MEDS: SPIRONOLACTONE 25 MG TAB PO SCH (08:44)
[2024-08-31] MEDS: ATORVASTATIN 40 MG TAB PO SCH (08:44)
[2024-08-31] MEDS: ARIPIPRAZOLE 2 MG TABLET PEG SCH (08:44)
[2024-08-31] MEDS: FUROSEMIDE 40 MG TAB PO SCH (08:47)
[2024-08-31] MEDS ORDERED: SIMETHICONE 80 MG CHEW PO PRN (22:00)
[2024-08-31] MEDS: SIMETHICONE 80 MG CHEW PO PRN (22:06)
[2024-09-01 00:43] VITALS: BP 142/65; PULSE 63; RESP 19; TEMP 97.8; O2SAT 100
[2024-09-01] MEDS: ONDANSETRON HCL INJ 2MG/ML 2ML 2 MG/ML VIAL IV PRN (02:54)
[2024-09-01] MEDS: Morphine 2mg Syringe 2 MG/ML SYR IV PRN (02:55)
[2024-09-01 06:39] LABS: BASOPHILS # (AUTO) 0.1 (0.0-0.1); BASOPHILS % 1.2 % (0.0-1.0); EOSINOPHILS # (AUTO) 0.7 (0.0-0.4); EOSINOPHILS % 8.1 % (0.0-6.0); HEMATOCRIT 31.3 % (34.2-44.1); LYMPHOCYTES % 12.7 % (18.0-39.1); MEAN CORPUSCULAR HEMOGLOBIN 17.9 pg (28-32); MEAN CORPUSCULAR HGB CONC 28.8 g/dL (31-35); MEAN CORPUSCULAR VOLUME 62.4 fL (81-99); MONOCYTES # (AUTO) 0.6 (0.2-0.8); MONOCYTES % 7.9 % (4.4-11.3); NEUTROPHILS # (AUTO) 5.7 (2.1-6.9); NEUTROPHILS % 69.9 % (38.7-80.0); PLATELET COUNT 181 x10e3/uL (140-360); RED BLOOD COUNT 5.02 x10e6/uL (3.6-5.1); RED CELL DISTRIBUTION WIDTH 27.1 % (11.7-14.4); WHITE BLOOD COUNT 8.13 x10e3/uL (4.8-10.8)
[2024-09-01 07:47] VITALS: PULSE 69; RESP 18; O2SAT 97
[2024-09-01 08:00] VITALS: BP 132/51; PULSE 66; RESP 18; TEMP 97.6; O2SAT 97
[2024-09-01 08:39] VITALS: BP 132/51; PULSE 66; RESP 20; TEMP 97.6
[2024-09-01 08:42] VITALS: BP 132/51; PULSE 66; RESP 20; TEMP 97.6
[2024-09-01] MEDS: NITROFURANTOIN MACROCRYSTALS 100 MG CAP PO SCH (09:31)
[2024-09-01 11:00] VITALS: BP 155/72; PULSE 61; RESP 20; TEMP 98.2; O2SAT 95
== END 2024-09-01 11:35 | disposition home health service (06) | DRG 812 ==
LOC: ER 09:58 → ERHOLD 12:07 → MED/SURG 18:29
PROVIDERS: ADMIT Family Medicine; ATTEND Family Medicine
PROC: 30233N1 Transfusion of Nonautologous Red Blood Cells into Peripheral Vein, Percutaneous Approach (ICD-10-PCS; 2024-08-29)
PROC: 0DB78ZX Excision of Stomach, Pylorus, Via Natural or Artificial Opening Endoscopic, Diagnostic (ICD-10-PCS; 2024-08-30)
PROC: 0DB68ZX Excision of Stomach, Via Natural or Artificial Opening Endoscopic, Diagnostic (ICD-10-PCS; principal; 2024-08-30 13:34)
DX: D50.0 Iron deficiency anemia secondary to blood loss (chronic) (principal); I13.0 Hypertensive heart and chronic kidney disease with heart failure and stage 1 through stage 4 chronic kidney disease, or unspecified chronic kidney disease; I50.32 Chronic diastolic (congestive) heart failure; J96.11 Chronic respiratory failure with hypoxia; K76.6 Portal hypertension; K92.2 Gastrointestinal hemorrhage, unspecified; K76.82 Hepatic encephalopathy; Z99.81 Dependence on supplemental oxygen; E11.40 Type 2 diabetes mellitus with diabetic neuropathy, unspecified; E11.22 Type 2 diabetes mellitus with diabetic chronic kidney disease; N18.31 Chronic kidney disease, stage 3a; K31.89 Other diseases of stomach and duodenum; I25.10 Atherosclerotic heart disease of native coronary artery without angina pectoris; E78.5 Hyperlipidemia, unspecified; K74.60 Unspecified cirrhosis of liver; K75.81 Nonalcoholic steatohepatitis (NASH); K21.9 Gastro-esophageal reflux disease without esophagitis; M54.9 Dorsalgia, unspecified; J44.9 Chronic obstructive pulmonary disease, unspecified; I89.0 Lymphedema, not elsewhere classified; M19.90 Unspecified osteoarthritis, unspecified site; F32.A Depression, unspecified; F41.9 Anxiety disorder, unspecified; Z11.52 Encounter for screening for COVID-19; Z79.84 Long term (current) use of oral hypoglycemic drugs; Z79.890 Hormone replacement therapy; Z86.73 Personal history of transient ischemic attack (TIA), and cerebral infarction without residual deficits; Z85.3 Personal history of malignant neoplasm of breast; Z90.49 Acquired absence of other specified parts of digestive tract; Z90.710 Acquired absence of both cervix and uterus; Z90.11 Acquired absence of right breast and nipple
CPT/HCPCS: 36415; 43239; 71045; 80048; 80053; 81001; 82140; 82550; 82607; 82728; 82746; 82948; 83540; 83735; 83880; 84466; 84484; 85025; 85045; 85610; 85730; 86850; 86900; 86920; 87086; 87186; 88305; 88342; 93005; 94799; 99284; J1756; J1940; J2003; J2270; J2353; J2354; J2405; J2470; J7050; P9016

== ENCOUNTER → 2024-10-10 | Outpatient (REF) | payer MEDICARE ==
[~2024-10-10] MED LIST changes: +ULTRAM 50MG50 MG PO; +XIFAXAN550 MG PO
== END ==
LOC: DX 08:19
PROVIDERS: ATTEND Nurse Practitioner
DX: D64.89 Other specified anemias (principal)
CPT/HCPCS: 74250